=== PATIENT | male | born 1980 | race Caucasian/White ===

== ENCOUNTER 2018-04-03 23:01 | Emergency (ER) | payer SELFPAY ==
[~2018-04-03] VITALS: Ht 172.7 cm; Wt 69.9 kg
--- NOTE | 2018-04-03 23:35 | PHYS DOC ---
Past Medical History Past Medical History: No Pertinent History Past Surgical History: Other Additional Past Surgical Histo: ACL RIGHT KNEE,MINICUS, Alcohol Use: None Drug Use: None Adult General Chief Complaint Chief Complaint: SHORTNESS OF BREATH HPI HPI Patient is a 37 year old male who presents with right rib pain. Patient states he fell on the ice yesterday striking the right chest wall on the ground. He had severe onset of pain at that time. He was evaluated at [facility] in [place] yesterday where he reportedly had a chest x- ray and was told there was no acute injury. He was discharged home with ibuprofen and [place]. He took 1 [place] today but did not have relief of his pain symptoms. He presents to the ER this evening complaining that the pain is severe. It causes him to feel short of breath. He also describes some lightheadedness and dizziness. He complains that he also coughed up some blood- tinged sputum earlier in the day. He became alarmed that there was a more serious condition so he came to this hospital for repeat evaluation. Review of Systems Review of Systems Constitutional: Denies Eyes: Denies change in visual acuity HENT: Denies nasal congestion Respiratory: Denies cough or shortness of breath Cardiovascular: No additional information not addressed in HPI GI: Denies abdominal pain : Denies dysuria Musculoskeletal: Denies back pain Integument: Denies rash or skin lesions Neurologic: Denies headache, focal weakness All other systems were reviewed and found to be within normal limits, except as documented in this note. Current Medications Current Medications Current Medications Medications (Trade) Dose Ordered Sig/Kurt Start Time Stop Time Status Last Admin Dose Admin Hydromorphone HCl (Dilaudid) 1 mg 1X ONCE 04/04/18 02:00 04/04/18 02:01 DC 04/04/18 01:44 1 MG Info (CONTRAST GIVEN -- Rx MONITORING) 1 each PRN DAILY PRN 04/03/18 23:45 04/04/18 02:14 DC Iohexol (Omnipaque 300 Mg/ml) 75 ml 1X ONCE 04/04/18 00:00 04/04/18 00:01 DC 04/04/18 00:06 75 ML Morphine Sulfate (Morphine Sulfate) 6 mg 1X ONCE 04/03/18 23:45 04/03/18 23:46 DC 04/03/18 23:53 6 MG Ondansetron HCl (Zofran) 4 mg 1X ONCE 04/03/18 23:45 04/03/18 23:46 DC 04/03/18 23:53 4 MG Allergies Allergies Allergies Coded Allergies Type Severity Reaction Last Updated Verified No Known Drug Allergies 07/16/14 No Physical Exam Physical Exam Constitutional: Well developed, well nourished, no acute distress, non-toxic appearance HENT: Normocephalic, atraumatic, bilateral external ears normal, oropharynx moist Eyes: PERRLA, EOMI, conjunctiva normal Neck: Normal range of motion, no tenderness, supple Cardiovascular:Heart rate regular rhythm, no murmur Lungs & Thorax: Bilateral breath sounds clear to auscultation Abdomen: Bowel sounds normal, soft, no tenderness Skin: Warm, dry, no erythema, no rash Back: No tenderness Extremities: No trauma or injury seen Neurologic: Alert and oriented X 3 Psychologic: Affect normal, judgement normal Current Patient Data Vital Signs Vital Signs Date Time Temp Pulse Resp B/P (MAP) Pulse Ox O2 Delivery O2 Flow Rate FiO2 04/04/18 01:44 12 97 Room Air 04/04/18 01:34 51 133/86 (102) 04/03/18 23:15 97.3 97.3 Lab Values Laboratory Tests Test 04/03/18 23:35 White Blood Count 16.3 x10^3/uL (4.0-11.0) H Red Blood Count 4.84 x10^6/uL (4.30-5.70) Hemoglobin 15.2 g/dL (13.0-17.5) Hematocrit 42.7 % (39.0-53.0) Mean Corpuscular Volume 88 fL (79-100) Mean Corpuscular Hemoglobin 31 pg (25-35) Mean Corpuscular Hemoglobin Concent 36 g/dL (31-37) Red Cell Distribution Width 13.4 % (11.5-14.5) Platelet Count 281 x10^3/uL (140-400) Neutrophils (%) (Auto) 74 % (31-73) H Lymphocytes (%) (Auto) 19 % (24-48) L Monocytes (%) (Auto) 7 % (0-9) Eosinophils (%) (Auto) 1 % (0-3) Basophils (%) (Auto) 0 % (0-3) Neutrophils # (Auto) 12.0 x10^3uL (1.8-7.7) H Lymphocytes # (Auto) 3.0 x10^3/uL (1.0-4.8) Monocytes # (Auto) 1.1 x10^3/uL (0.0-1.1) Eosinophils # (Auto) 0.1 x10^3/uL (0.0-0.7) Basophils # (Auto) 0.1 x10^3/uL (0.0-0.2) Sodium Level 141 mmol/L (136-145) Potassium Level 3.2 mmol/L (3.5-5.1) L Chloride Level 102 mmol/L (98-107) Carbon Dioxide Level 27 mmol/L (21-32) Anion Gap 12 (6-14) Blood Urea Nitrogen 9 mg/dL (8-26) Creatinine 1.2 mg/dL (0.7-1.3) Estimated GFR (Cockcroft-Gault) 67.8 Glucose Level 113 mg/dL (70-99) H Calcium Level 9.3 mg/dL (8.5-10.1) Total Bilirubin 0.9 mg/dL (0.2-1.0) Direct Bilirubin 0.2 mg/dL (0.0-0.2) Aspartate Amino Transferase (AST) 15 U/L (15-37) Alanine Aminotransferase (ALT) 14 U/L (16-63) L Alkaline Phosphatase 60 U/L (46-116) Total Protein 8.1 g/dL (6.4-8.2) Albumin 4.2 g/dL (3.4-5.0) Lipase 154 U/L (73-393) Laboratory Tests 04/03/18 23:35 Laboratory Tests 04/03/18 23:35 EKG EKG [] Radiology/Procedures Radiology/Procedures FINDINGS: No mediastinal hematoma is seen. The heart and thoracic aorta are within normal limits. No pulmonary infiltrate is noted. No pneumothorax or pleural effusion is seen. The liver, spleen, pancreas, adrenal glands and kidneys are within normal limits. Atherosclerotic calcification of the abdominal aorta is seen. The abdominal aorta tapers normally. The gallbladder is well-distended. No free fluid or free air is seen within the abdomen. There is no evidence of bowel obstruction. The appendix is well-visualized and is within normal limits. Images through the pelvis demonstrate the urinary bladder distended with urine. Calcifications are seen within the pelvis consistent with phleboliths. No free fluid is seen. No pelvic hematoma is noted. Very mild S-shaped curvature of the thoracolumbar spine is seen. Degenerative changes are seen involving lower thoracic and mid and lower lumbar spine. The osseous structures are intact. IMPRESSION: No acute abnormality is seen. Course & Med Decision Making Course & Med Decision Making Pertinent Labs and Imaging studies reviewed. (See chart for details) Patient is seen immediately on arrival to his room. Second visit to care over last 24 hours after falling yesterday. C/o coughing up some blood-tinged mucous and lightheadedness, dizziness. Will check CT chest/abd/pelvis, labs, UA and give IVF's and pain medications. 12:15: No pain relief after the morphine. Patient states he has had large amounts of opiates in the past. He complains of difficulty breathing, primarily due to pain. Workup is still pending. I did reassess his lung sounds and they were clear. His oxygen saturation is 98%. He had good air movement in all phillips. He is ordered to have Dilaudid for pain. 13:30: Patient has relief of pain after receiving Dilaudid. CT scan is reviewed and there are no acute findings. His lab panel was also unremarkable. Plan is for discharge home. He is provided a prescription for Dilaudid to use at home. Patient is not opiate alberto. He is advised to follow-up with a primary care physician or return to the ER for any new or worsening symptoms. Family is present to drive him home this evening. Dragon Disclaimer Dragon Disclaimer This electronic medical record was generated, in whole or in part, using a voice recognition dictation system. Departure Departure Disposition: HOME, SELF-CARE Condition: GOOD Referrals: JASWANT BAUER MD (PCP) Scripts Hydromorphone Hcl (DILAUDID) 2 Mg Tablet 1-2 TAB PO TID for severe pain, #20 TAB Prov: SATINDER HECK DO 04/04/18 SATINDER HECK DO Apr 03, 2018 23:35
[2018-04-03] MEDS ORDERED: MORPHINE SULFATE 4 MG/ML VIAL. IV ONE (23:45)
[2018-04-03] MEDS ORDERED: CONTRAST GIVEN. MC PRN (23:45)
[2018-04-03] MEDS ORDERED: ONDANSETRON PF 4 MG/2 ML VIAL. IV ONE (23:45)
[2018-04-03 23:47] LABS: BASO # 0.1 x10^3/uL (0.0-0.2); BASO % 0 % (0-3); EOS # 0.1 x10^3/uL (0.0-0.7); EOS % 1 % (0-3); HEMATOCRIT 42.7 % (39.0-53.0); HEMOGLOBIN 15.2 g/dL (13.0-17.5); LYMPH % 19 % (24-48); MEAN CORPUSCULAR HEMOGLOBIN 31 pg (25-35); MEAN CORPUSCULAR HGB CONC 36 g/dL (31-37); MEAN CORPUSCULAR VOLUME 88 fL (79-100); MONO # 1.1 x10^3/uL (0.0-1.1); MONO % 7 % (0-9); NEUT % 74 % (31-73); PLATELET COUNT 281 x10^3/uL (140-400); RED BLOOD COUNT 4.84 x10^6/uL (4.30-5.70); RED CELL DISTRIBUTION WIDTH 13.4 % (11.5-14.5); WHITE BLOOD COUNT 16.3 x10^3/uL (4.0-11.0)
[2018-04-03 23:54] LABS: CALCIUM 9.3 mg/dL (8.5-10.1); CREATININE 1.2 mg/dL (0.7-1.3); GFR 67.8; POTASSIUM 3.2 mmol/L (3.5-5.1)
[2018-04-04] LABS: ALBUMIN 4.2 g/dL (3.4-5.0); DIRECT BILIRUBIN 0.2 mg/dL (0.0-0.2); TOTAL BILIRUBIN 0.9 mg/dL (0.2-1.0); TOTAL PROTEIN 8.1 g/dL (6.4-8.2)
[2018-04-04] MEDS ORDERED: IOHEXOL 300 MG/ML 100ML VIAL. IV ONE
[2018-04-04] MEDS ORDERED: HYDROmorphone 2 MG/ML VIAL IV ONE ×3 (01:00→02:00)
--- NOTE | 2018-04-04 01:03 | RAD ---
CT scan of the chest, abdomen and pelvis with contrast 04/04/2018 CLINICAL HISTORY: Patient fell with chest, abdominal and pelvic pain. TECHNIQUE: After the intravenous administration of 75 cc of Omnipaque 300, contiguous, 5 mm axial sections were obtained through the chest abdomen and pelvis. One or more of the following individualized dose reduction techniques were utilized for this study: 1. Automated exposure control. 2. Adjustment of the mA and/or kV according to patient size. 3. Use of iterative reconstruction technique. FINDINGS: No mediastinal hematoma is seen. The heart and thoracic aorta are within normal limits. No pulmonary infiltrate is noted. No pneumothorax or pleural effusion is seen. The liver, spleen, pancreas, adrenal glands and kidneys are within normal limits. Atherosclerotic calcification of the abdominal aorta is seen. The abdominal aorta tapers normally. The gallbladder is well-distended. No free fluid or free air is seen within the abdomen. There is no evidence of bowel obstruction. The appendix is well-visualized and is within normal limits. Images through the pelvis demonstrate the urinary bladder distended with urine. Calcifications are seen within the pelvis consistent with phleboliths. No free fluid is seen. No pelvic hematoma is noted. Very mild S-shaped curvature of the thoracolumbar spine is seen. Degenerative changes are seen involving lower thoracic and mid and lower lumbar spine. The osseous structures are intact. IMPRESSION: No acute abnormality is seen. Electronically signed by: Fabian Castillo MD (04/04/2018 12:59 AM) [id number]
[2018-04-04 01:34] VITALS: BP 133/86
[2018-04-04] MEDS ORDERED: HYDR2TAB31 PO (01:41)
== END 2018-04-04 01:55 | disposition home or self-care (01) ==
LOC: ER 23:01
DX: R04.2 Hemoptysis (principal); R42 Dizziness and giddiness; R07.81 Pleurodynia
CPT/HCPCS: 36415; 71260; 74177; 80048; 80076; 83690; 85025; 96374; 96375; 96376; 99284; J1170; J2270; J2405; Q9967

== ENCOUNTER → 2021-05-05 | Emergency (ER) | payer SELFPAY ==
[~2021-05-05] MED LIST: HYDR2TAB31 PO
== END | disposition left against medical advice (07) ==
LOC: ER 12:40
DX: M54.9 Dorsalgia, unspecified (principal); Z53.21 Procedure and treatment not carried out due to patient leaving prior to being seen by health care provider